=== PATIENT | female | born 1975 | race American Indian/Alaskan Native ===

== ENCOUNTER 2018-11-20 01:23 | Emergency (ER) | payer OTHER ==
[2018-11-20 02:55] LABS: Bacteria,Urine 4+ /HPF (Negative); Bilirubin,Urine NEG (Negative); Blood,Urine NEG (Negative); Color,Urine Yellow (Yellow); Mucus,Urine 2+ /HPF; Protein,Urine <15 mg/dL mg/dL (Negative); Urobilinogen,Urine < 2.0 mg/dL (<2.0)
[2018-11-20] MEDS ORDERED: ULTRAM PO ONE (03:57)
[2018-11-20] MEDS ORDERED: IBUPROFEN ONE (04:30)
[2018-11-20] MEDS ORDERED: IBUPROFEN PO ONE (04:30)
--- NOTE | 2018-11-20 05:09 | Emergency Department Report ---
ED Abdominal Pain HPI - General Chief Complaint: Extremity Injury, Lower Stated Complaint: PAIN IN RIGHT HIP Time Seen by Provider: 11/20/18 03:57 Source: patient Mode of arrival: Ambulatory Limitations: No Limitations - History of Present Illness Initial Comments: pt is a 43 y/o [employer] who presents for right hip pain and abdominal wall pain 4/10 pain exacerbated by movement palpation there is no fever no chills no n/v MD Complaint: abdominal pain Onset/Timin -: week(s) Location: RLQ (right lateral abdominal wall ) Migration to: other (right lateral abdominal wall pain ) Severity scale (0 -10): 4 Quality: cramping, sharp Consistency: intermittent Improves With: rest Worsens With: movement, other (palpation ) Associated Symptoms: denies: nausea, vomiting - Related Data LMP (females 10-50): last week Home Medications Medication Instructions Recorded Confirmed Last Taken Lisinopril [Zestril] 40 mg PO QDAY 03/17/15 03/24/15 03/24/15 05:45 hydroCHLOROthiazide [Hctz] 25 mg PO QDAY 03/17/15 03/24/15 03/24/15 05:45 Previous Rx's Medication Instructions Recorded Last Taken Type Cyclobenzaprine [Flexeril] 10 mg PO TID PRN #30 tablet 11/20/18 Unknown Rx Fluticasone [Flonase] 1 spray NS QDAY #1 bottle 11/20/18 Unknown Rx Menthol/Camphor [[place] Swengel 1 applicatio TP QID PRN 1 Days #1 11/20/18 Unknown Rx Ointment] 1000units Naproxen 500 mg PO BID PRN #30 tablet 11/20/18 Unknown Rx diphenhydrAMINE [Benadryl CAP] 25 mg PO Q6HR PRN #30 capsule 11/20/18 Unknown Rx Allergies Allergy/AdvReac Type Severity Reaction Status Date / Time No Known Allergies Allergy Verified 07/09/13 10:02 ED Review of Systems ROS: Stated complaint: PAIN IN RIGHT HIP Other details as noted in HPI Constitutional: denies: chills, fever Eyes: denies: eye pain, eye discharge, vision change ENT: denies: ear pain, throat pain Respiratory: denies: cough, shortness of breath, wheezing Cardiovascular: denies: chest pain, palpitations Endocrine: no symptoms reported Gastrointestinal: abdominal pain (abdominal wall pain ). denies: nausea, vomiting, diarrhea, constipation, hematemesis, melena, hematochezia Genitourinary: denies: urgency, dysuria, discharge Musculoskeletal: denies: back pain, joint swelling, arthralgia Skin: denies: rash, lesions Neurological: denies: headache, weakness, paresthesias Psychiatric: denies: anxiety, depression Hematological/Lymphatic: denies: easy bleeding, easy bruising ED Past Medical Hx - Past Medical History Hx Hypertension: Yes (1998; EF = 55-60%; takes lisinopril and HCTZ) Hx GERD: Yes (USES OTC MED) Hx Headaches / Migraines: Yes Additional medical history: Constipation - Surgical History Hx Breast Surgery: Yes (BREAST REDUCTION 2003) Additional Surgical History: Hysrterectomy, Gastric Sleeve, Loose Skin - Social History Smoking Status: Never Smoker Substance Use Type: None - Medications Home Medications: Home Medications Medication Instructions Recorded Confirmed Last Taken Type Lisinopril [Zestril] 40 mg PO QDAY 03/17/15 03/24/15 03/24/15 05:45 History hydroCHLOROthiazide [Hctz] 25 mg PO QDAY 03/17/15 03/24/15 03/24/15 05:45 History Cyclobenzaprine [Flexeril] 10 mg PO TID PRN #30 tablet 11/20/18 Unknown Rx Fluticasone [Flonase] 1 spray NS QDAY #1 bottle 11/20/18 Unknown Rx Menthol/Camphor [[place]el 1 applicatio TP QID PRN 1 Days #1 11/20/18 Unknown Rx Ointment] 1000units Naproxen 500 mg PO BID PRN #30 tablet 11/20/18 Unknown Rx diphenhydrAMINE [Benadryl CAP] 25 mg PO Q6HR PRN #30 capsule 11/20/18 Unknown Rx ED Physical Exam - General Limitations: No Limitations General appearance: alert, in no apparent distress - Head Head exam: Present: atraumatic, normocephalic - Eye Eye exam: Present: normal appearance, PERRL, EOMI - ENT ENT exam: Present: normal orophraynx, mucous membranes moist - Neck Neck exam: Present: normal inspection, full ROM. Absent: tenderness - Respiratory Respiratory exam: Present: normal lung sounds bilaterally. Absent: respiratory distress, wheezes, stridor, chest wall tenderness - Cardiovascular Cardiovascular Exam: Present: regular rate, normal rhythm, normal heart sounds. Absent: systolic murmur, diastolic murmur, rubs, gallop - GI/Abdominal GI/Abdominal exam: Present: soft, tenderness (right lateral abd wall tendereness to deep palpation no deformity no ecchymosis no swelling no peritoneal signs ), normal bowel sounds. Absent: guarding, rebound, bruit, hernia - Rectal Rectal exam: Present: deferred - Extremities Exam Extremities exam: Present: normal inspection, full ROM. Absent: tenderness - Back Exam Back exam: Present: normal inspection, full ROM, vertebral tenderness. Absent: tenderness, CVA tenderness (R), CVA tenderness (L), muscle spasm, paraspinal tenderness, rash noted - Neurological Exam Neurological exam: Present: alert, oriented X3, CN II-XII intact, normal gait, reflexes normal - Psychiatric Psychiatric exam: Present: normal affect, normal mood - Skin Skin exam: Present: warm, dry, intact, normal color. Absent: rash ED Course Vital Signs 11/20/18 11/20/18 01:41 01:43 Temperature 97.7 F 97.7 F Pulse Rate 68 73 Respiratory 18 18 Rate Blood Pressure 137/93 137/93 O2 Sat by Pulse 100 99 Oximetry ED Medical Decision Making - Medical Decision Making this is a abdominal wall strain , plan naproxen flexeril tiger balm. follow up with pcp in 2-3 days return to ed of symptoms worse, pt verbalized agreement and undeerstanding of discharge plan. Critical care attestation.: If time is entered above; I have spent that time in minutes in the direct care of this critically ill patient, excluding procedure time. ED Disposition Clinical Impression: Allergic rhinitis Qualifiers: Allergic rhinitis trigger: unspecified Allergic rhinitis seasonality: non- seasonal Qualified Code(s): J30.89 - Other allergic rhinitis Abdominal wall strain Qualifiers: Encounter type: initial encounter Qualified Code(s): S39.011A - Strain of muscle, fascia and tendon of abdomen, initial encounter Disposition: TO HOME OR SELFCARE Is pt being admited?: No Does the pt Need Aspirin: No Condition: Stable Instructions: Muscle Strain (ED), Core Strengthening Exercises (GEN) Prescriptions: diphenhydrAMINE [Benadryl CAP] 25 mg PO Q6HR PRN #30 capsule PRN Reason: congestion Cyclobenzaprine [Flexeril] 10 mg PO TID PRN #30 tablet PRN Reason: Muscle Spasm Fluticasone [Flonase] 1 spray NS QDAY #1 bottle Naproxen 500 mg PO BID PRN #30 tablet PRN Reason: pain Menthol/Camphor [[place] Swengel Ointment] 1 applicatio TP QID PRN 1 Days #1 1000units PRN Reason: pain Referrals: KRYSTAL CHAVEZ MD [Primary Care Provider] - 3-5 Days Forms: Work/School Release Form(ED) Time of Disposition: 05:24
[2018-11-20 05:54] VITALS: BP 122/86
== END 2018-11-20 05:55 | disposition home or self-care (01) ==
LOC: ED 01:23
DX: S39.011A Strain of muscle, fascia and tendon of abdomen, initial encounter (principal); J30.89 Other allergic rhinitis; I10 Essential (primary) hypertension; K21.9 Gastro-esophageal reflux disease without esophagitis; G43.909 Migraine, unspecified, not intractable, without status migrainosus; Z90.710 Acquired absence of both cervix and uterus; Z79.899 Other long term (current) drug therapy; X58.XXXA Exposure to other specified factors, initial encounter; Y93.89 Activity, other specified; Y92.89 Other specified places as the place of occurrence of the external cause; Y99.8 Other external cause status
CPT/HCPCS: 81001; 99283

== ENCOUNTER 2018-12-08 08:41 | Outpatient (CLI) | payer OTHER ==
[2018-12-08 09:38] LABS: Blood Urea Nitrogen 19 mg/dL (7-17)
--- NOTE | 2018-12-08 13:59 | Cat Scan Report ---
CT ABDOMEN AND PELVIS WITH CONTRAST INDICATION: Evaluate for acute appendicitis. COMPARISON: None similar. FINDINGS: Abdomen and pelvis CT performed following oral contrast and intravenous administration of 100 cc of Omnipaque 300. LUNG BASES: Mild to moderate distal esophageal wall prominence/thickening, not excluded for gastroesophageal reflux and/or hiatal hernia, amongst others. Normal heart size. No effusions. ABDOMEN: Gastric bypass changes noted. Nonobstructive, unremarkable small bowel, including the terminal ileum. Normal retrocecal appendix. Mild to moderate stool throughout colon/possible constipation, partly admixed with contrast proximally. Left hepatic lobe tip touches the spleen in the left upper quadrant. Otherwise unremarkable liver, spleen, gallbladder, pancreas, adrenals, aorta, IVC and kidneys. No ascites or size significant adenopathy. PELVIS: Uterus surgically absent. A 4.4 x 3.6 cm left adnexal/ovarian cyst. Few pelvic phleboliths. Grossly unremarkable urinary bladder and the rectosigmoid. No free fluid or significant adenopathy. Unremarkable bones. CONCLUSION: No acute CT abnormality or acute appendicitis with various other findings as gastric bypass changes, distal esophageal thickening, hysterectomy, left adnexal/ovarian cyst and possible constipation, amongst others, as above. Please correlate. Thank you for the opportunity to participate in this patient's care.
== END 2018-12-08 08:42 | disposition home or self-care (01) ==
LOC: CT 08:41
PROVIDERS: ATTEND Internal Medicine
DX: K35.80 Unspecified acute appendicitis (principal); E66.01 Morbid (severe) obesity due to excess calories; K21.9 Gastro-esophageal reflux disease without esophagitis; I10 Essential (primary) hypertension; Z90.710 Acquired absence of both cervix and uterus; Z87.891 Personal history of nicotine dependence
CPT/HCPCS: 36415; 74177; 82565; 84520; Q9967